=== PATIENT | male | born 1970 | race Caucasian/White ===

== ENCOUNTER 2020-08-24 14:21 | Outpatient (CLI) | payer BC, SELFPAY ==
--- NOTE | ~2020-08-24 | XR_ITS ---
XR foot RT 2V, XR foot LT 2V 08/24/2020 14:43 Indication: Psoriatic arthritis. Procedure: 2 views of each foot Comparison: No prior studies for comparison. Findings: Right foot: Erosive changes are noted at the margins distal aspect of the first proximal ph alanx as well as the second distal interphalangeal joint, third interphalangeal joint, fourth proxima l interphalangeal joint and fifth interphalangeal joint. No acute fractures identified. Normal minera lization. Lisfranc joint intact. No focal soft tissue abnormality. Left foot: There are erosive changes at the fourth and fifth metatarsal phalangeal joints. There are mild degenerative changes of the first MTP and IP joints. Lisfranc joint intact. Normal mineralizatio n. No significant soft tissue abnormality. Impression: 1: Bilateral polyarticular erosive changes as described above, compatible with known psoriatic arthri tis. Reviewed, dictated and finalized at location A. 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 Impression: 1: Bilateral polyarticular erosive changes as described above, compatible with known psoriatic arthritis.
--- NOTE | ~2020-08-24 | XR_ITS ---
EXAMINATION: 1. XR hand LT 2V 2. XR hand RT 2V DATE: 08/24/2020 14:43 INDICATION: Psoriatic arthritis. TECHNIQUE: 2 views of right hand and 2 views of left hand were obtained. COMPARISON: None. FINDINGS: RIGHT HAND: Bone alignment is normal. No fracture. 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 There are erosions at first and fifth metacarpophalangeal join ts. There is mild osteoarthritis of third metacarpophalangeal joint. There are erosions at fifth dist al interphalangeal joint. There is bone formation at third and fourth proximal and distal interphalan geal joints. There is heterotopic ossification radial to third proximal interphalangeal joint. LEFT HAND: There is radial angulation of second, third, and fifth distal phalanges with respect to th e middle phalanges. There are erosions at the second through fifth distal interphalangeal joints and first interphalangeal joint. There are erosions at first through third metacarpophalangeal joints. Th ere are dystrophic calcifications in the soft tissues around third proximal interphalangeal joint. Th ere is mild osteoarthritis of distal radioulnar joint. There is mild osteoarthritis of radiolunate ag int. There is abutment of distal ulna and proximal lunate, consistent with ulnolunate abutment syndro me. IMPRESSION: 1. Inflammatory arthropathy with a distal predominance, likely psoriatic arthritis. Reviewed, dictated and finalized at location A. 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 Inflammatory arthropathy with a distal predominance, likely psoriatic arthri tis.
== END 2020-08-24 14:22 | disposition home or self-care (01) ==
PROVIDERS: PCP Physician Assistant; Visit Provider Physician Assistant
DX: L40.50 Arthropathic psoriasis, unspecified (principal)
CPT/HCPCS: 73120; 73620

== ENCOUNTER → 2021-03-31 15:53 | Outpatient (CLI) | payer BC, SELFPAY ==
--- NOTE | ~2021-03-31 | XR_ITS ---
EXAMINATION: XR chest 2V DATE: 03/31/2021 16:04 INDICATION: Cough TECHNIQUE: PA and lateral views of the chest are obtained. COMPARISON: 08/09/2017 FINDINGS: The lungs are free of acute opacities. There is no pleural effusion or pneumothorax. The ca rdiomediastinal silhouette is normal. There is mild thoracic spondylosis. IMPRESSION: 1. No acute cardiopulmonary abnormality. Reviewed, dictated and finalized at location B.
== END ==
PROVIDERS: Visit Provider Physician Assistant
DX: R05 Cough (principal)
CPT/HCPCS: 71046

== ENCOUNTER 2022-09-27 20:49 | Emergency (ER) | payer BC, SELFPAY ==
--- NOTE | ~2022-09-27 | XR_ITS ---
EXAMINATION: XR chest 2V DATE: 09/27/2022 23:34 INDICATION: Gastric abdominal pain extending into the chest. TECHNIQUE: PA and lateral views of the chest were obtained. COMPARISON: Chest radiograph dated 03/31/2021 FINDINGS: The lungs remain clear with no focal airspace opacities, pulmonary edema, pleural effusion or pneumot horax. The cardiomediastinal silhouette is normal. Visualized bones and soft tissues are unremarkable . IMPRESSION: 1. No acute cardiopulmonary disease. Reviewed, dictated and finalized at location A. 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
[2022-09-27 20:50] VITALS: BP 170/97; PULSE 85; RESP 18; TEMP 36.6; O2SAT 100
--- NOTE | 2022-09-27 22:56 | ECG_ITS ---
Measurements Intervals [place] Rate: 63 P: 37 IL: 161 QRS: 23 QRSD: 98 T: 58 QT: 379 QTc: 389 Interpretive Statements SINUS RHYTHM RSR' IN V1 OR V2, PROBABLY NORMAL VARIANT BORDERLINE ECG NO PREVIOUS ECG AVAILABLE FOR COMPARISON Electronically Signed On 09-28-2022 6:51:46 [employer] SALES REPRESENTATIVES by Femi Ayala D.O.
[2022-09-27] MEDS: FAMOTIDINE 20 MG/2 ML VIAL IV PUSH (22:57)
[2022-09-27 22:59] LABS: Basophils Absolute Auto 0.1 K/mm3 (0.0-0.1); Basophils Percent Auto 1.2 % (0.2-1.2); Eosinophils Absolute Auto 0.1 K/mm3 (0-0.3); Eosinophils Percent Auto 2.1 % (0-4.4); Hemoglobin 14.4 g/dL (14.0-18.0); Immature Granulocyte Absolute 0.01 K/mm3 (0.00-0.031); Immature Granulocyte Percent A 0.1 % (0-0.5); Lymphocytes Percent Auto 46.9 % (18.3-44.2); Mean Corpuscular HGB Conc 34.3 g/dl (32-36); Mean Corpuscular Volume 93.3 fl (80-100); Mean Platelet Volume 8.9 fl (7.4-10.4); Monocytes Absolute Auto 0.6 K/mm3 (0.1-0.6); Monocytes Percent Auto 8.7 % (2.6-8.5); Neutrophils Absolute Auto 2.8 K/mm3 (1.3-6.7); Platelet Count Result 285 k/mm3 (150-375); Red Cell Distribution Width 12.5 % (11.5-14.5); White Blood Count 6.8 K/mm3 (4.5-10.0)
--- NOTE | 2022-09-27 23:01 | ED.ABDPAIN ---
HPI - Abdominal Pain General Chief Complaint: Abdominal Pain <VANESSA Mesa Last Filed: 09/28/22 01:15> Stated Complaint: chest pain <VANESSA Mesa Last Filed: 09/28/22 01:15> Time Seen by Provider: 09/27/22 21:59 <VANESSA Mesa Last Filed: 09/28/22 01:15> History of Present Illness HPI narrative: 51-year-old male here for evaluation epigastric abdominal pain over the last week. States it is described as a burning sensation, coming on at random. Denies exertional component to the pain. No relation to meals. He has never had a pain like this in the past. Reports some non-bloody diarrhea. Hx of psoriatic arthritis and has frequent NSAID use. Denies frequent ETOH. <VANESSA Mesa Last Filed: 09/28/22 01:15> Related Data Allergies/Adverse Reactions: Allergies Allergy/AdvReac Type Severity Reaction Status Date / Time No Known Allergies Allergy Unverified 02/08/12 16:00 <VANESSA Mesa Last Filed: 09/28/22 01:15> Review of Systems Review of Systems: Gen.: Denies fevers or chills Eyes: Denies eye pain or visual change ENT: Denies congestion Respiratory: Denies shortness of breath or cough CV: Denies chest pain or palpitations GI: Reports abdominal pain denies burning, urgency, frequency or hematuria Musculoskeletal: Denies back pain or muscle pain Neuro: Denies numbness, tingling, weakness or focal weakness Skin: Denies rash Except as documented, all other systems reviewed and negative <VANESSA Mesa Last Filed: 09/28/22 01:15> PMFSH Family History Family History: Family History (Updated 02/17/16 @ 23:21 by DOCTOR UNKNOWN) Mother Hypertension Father Patient's father is in good health <VANESSA Mesa Last Filed: 09/28/22 01:15> Exam Narrative: APPEARANCE: Well appearing, no pain in distress, well-nourished. Head: Normocephalic and atraumatic. EYES: PERRLA/EOMI, conjunctivae clear NOSE: No nasal drainage EARS: External ear normal in appearance THROAT: Oropharynx is clear. Mucous membranes are moist. NECK: Supple. No adenopathy, no masses. RESPIRATORY: Airway patent, respirations nonlabored. Clear to auscultation bilaterally, no rales, rhonchi, wheezing. CARDIOVASCULAR: Regular rate and rhythm without murmurs, rubs, or gallops. ABDOMINAL: Normoactive bowel sounds. Soft, nontender, nondistended. No rebound tenderness or guarding. MUSCULOSKELETAL: Extremities are warm and well-perfused. Moves all extremities well. No edema. NEURO: Normal speech. No focal neurologic deficits. SKIN: Skin is warm and dry. No rashes. PSYCHIATRIC: Normal affect/mood. <Glory Aguilera PA-C - Last Filed: 09/28/22 01:15> Course BRADDER/PA Physician Supervision This is a was performed by both a physician and an APC. I performed all aspects of the MDM as documented w/ the following additions: 51-year-old male presenting with epigastric pain. Abdominal exam was benign. Lab work was within normal limits. Symptoms improved with GI cocktail. Patient has significant NSAID use which is likely causing gastritis. patient educated on NSAID use and gastritis. Discharged. All questions answered. Patient in agreement w/ disposition. <Lang Rizo MD - Last Filed: 09/28/22 05:04> Vital Signs Vital signs: Vital Signs Temperature 97.9 F 09/27/22 20:50 Pulse Rate 85 09/27/22 20:50 Respiratory Rate 18 09/27/22 20:50 Blood Pressure 170/97 H 09/27/22 20:50 Pulse Oximetry 100 09/27/22 20:50 Oxygen Delivery Room Air 09/27/22 20:50 Temperature 97.9 F 09/27/22 20:50 Pulse Rate 77 09/27/22 23:24 Respiratory Rate 18 09/27/22 20:50 Blood Pressure 170/97 H 09/27/22 20:50 Pulse Oximetry 100 09/27/22 20:50 Oxygen Delivery Room Air 09/27/22 20:50 <Glory Aguilera PA-C - Last Filed: 09/28/22 01:15> Vital Signs Temperature 97.
[2022-09-27 23:24] VITALS: PULSE 77
[2022-09-27 23:26] LABS: Troponin I < 0.012 ng/mL (0.000-0.034)
[2022-09-27 23:28] LABS: Appearance Urine Clear (Clear); Bilirubin Urine Negative (Negative); Blood Urine Negative (Negative); Color Urine Yellow (Yellow); Glucose Urine UA Negative (Negative); Ketones Urine Negative (Negative); Leukocyte Esterase Ur Negative LEU/UL (Negative); Nitrate Urine Negative (Negative); Protein Urine Negative (Negative); Specific Grav Ur 1.012 (1.001-1.035)
[2022-09-28 00:33] LABS: Add Urine Microscopic? NO
[2022-09-28 00:53] LABS: Alanine Aminotransferase 75 U/L (6-50); Albumin Level 4.6 g/dL (3.5-5.1); Alkaline Phosphatase 43 U/L (38-126); Anion Gap 3 mmol/L (8-16); Aspartate Amino Transferase 49 U/L (17-59); Bilirubin,Total 0.7 mg/dL (0.2-1.3); Blood Urea Nitrogen 12 mg/dL (9-20); Carbon Dioxide 30 mmol/L (22-30); Chloride 102 mmol/L (98-107); Estimated CRCL calculation 95 ml/min; Estimated Glomerular Filt Rate > 60; Glucose 100 mg/dL (65-110); Lipase 67 U/L (23-300); Potassium 3.6 mmol/L (3.4-5.0); Sodium 135 mmol/L (137-145)
== END 2022-09-28 01:24 | disposition home or self-care (01) ==
PROVIDERS: Emergency Provider Physician Assistant; PCP Emergency Medicine
DX: K29.70 Gastritis, unspecified, without bleeding (principal); R94.31 Abnormal electrocardiogram [ECG] [EKG]
CPT/HCPCS: 36415; 71046; 80053; 81003; 83690; 84484; 85025; 93005; 96374; 99284

== ENCOUNTER 2024-08-10 15:11 | Outpatient (CLI) | payer OTHER, SELFPAY ==
--- NOTE | ~2024-08-10 | CT_ITS ---
EXAMINATION: CT sinus wo con DATE: 08/10/2024 15:25 INDICATION: Chronic sinusitis. TECHNIQUE: Computed tomography (CT) of the paranasal sinuses was performed without intravenous contra st. Iterative reconstruction technique was employed. The dose-length product was 289.74 mGy-cm. COMPARISON: None FINDINGS: There is mild mucosal thickening in right frontal sinus and the bilateral ethmoid sinuses. There is mild mucosal thickening in left sphenoid sinus and the bilateral maxillary sinuses. There is leftward deviation of the nasal septum. There are bilateral Rickey cells. There is occlusion of the infundibulum of the right ostiomeatal unit. The left ostiomeatal unit is patent. There are patent sec ondary ostia of the maxillary sinuses. IMPRESSION: 1. Mild mucosal thickening in the paranasal sinuses. 2. Leftward deviation of the nasal septum. Reviewed, dictated and finalized at location B. 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
== END 2024-08-10 15:12 | disposition home or self-care (01) ==
LOC: MICIMG 15:13
DX: J32.9 Chronic sinusitis, unspecified (principal); R09.81 Nasal congestion; J34.2 Deviated nasal septum
CPT/HCPCS: 70486